=== PATIENT | male | born 1970 | race Caucasian/White ===

== ENCOUNTER 2017-09-23 08:29 | Emergency (ER) | payer MEDICAID ==
[2017-09-23] MEDS ORDERED: Sodium Chloride 0.9% 1,000 ML IV ONE (08:37)
--- NOTE | 2017-09-23 08:39 | EDM.PDOC ---
ED HPI GENERAL MEDICAL PROBLEM - General Chief Complaint: Back Pain or Injury Stated Complaint: LOWER BACK PAIN Time Seen by Provider: 09/23/17 08:34 - History of Present Illness INITIAL COMMENTS - FREE TEXT/NARRATIVE: HISTORY AND PHYSICAL: History of present illness: Patient's 47-year-old white male presents with concern of right flank pain. No fever chills nausea vomiting he denies history urolithiasis he states he had cloudy urine recently. He denies trauma or other concern Review of systems: As per history of present illness and below otherwise all systems reviewed and negative. Past medical history: As per history of present illness and as reviewed below otherwise noncontributory. Surgical history: As per history of present illness and as reviewed below otherwise noncontributory. Social history: No reported history of drug or alcohol abuse. Family history: As per history of present illness and as reviewed below otherwise noncontributory. Physical exam: HEENT: Atraumatic, normocephalic, pupils reactive, negative for conjunctival pallor or scleral icterus, mucous membranes moist, throat clear, neck supple, nontender, trachea midline. Lungs: Clear to auscultation, breath sounds equal bilaterally, chest nontender. Heart: S1S2, regular, negative for clicks, rubs, or JVD. Abdomen: Soft, nondistended, nontender. Negative for masses or hepatosplenomegaly. Mild right side costovertebral tenderness. Pelvis: Stable nontender. Genitourinary: Deferred. Rectal: Deferred. Extremities: Atraumatic, negative for cords or calf pain. Neurovascular unremarkable. Neuro: Awake, alert, oriented. Cranial nerves II through XII unremarkable. Cerebellum unremarkable. Motor and sensory unremarkable throughout. Exam nonfocal. Diagnostics: CBC CMP UA urine culture sensitivity CT abdomen and pelvis Therapeutics: Normal saline 1 L bolus Impression: #1 right flank pain Definitive disposition and diagnosis as appropriate pending reevaluation and review of above. - Related Data Allergies Allergy/AdvReac Type Severity Reaction Status Date / Time No Known Allergies Allergy Verified 09/23/17 09:26 Home Meds: Home Meds . [No Known Home Meds] 09/23/17 [History] ED ROS GENERAL - Review of Systems Review Of Systems: ROS reveals no pertinent complaints other than HPI. ED EXAM, GENERAL - Physical Exam Exam: See Below (See dictation) Course - Vital Signs Last Recorded V/S: Last Vital Signs Temp 36.4 C 09/23/17 08:45 Pulse 79 09/23/17 08:45 Resp 18 09/23/17 08:45 BP 147/99 H 09/23/17 08:45 Pulse Ox 94 L 09/23/17 08:45 - Orders/Labs/Meds Orders: Active Orders 24 hr Category Date Time Status Abdomen Pelvis wo Cont [CT] Stat Exams 09/23/17 08:37 Taken CULTURE URINE [RM] Stat Lab 09/23/17 09:42 Ordered UA W/MICROSCOPIC [URIN] Stat Lab 09/23/17 09:42 Ordered Labs: Laboratory Tests 09/23/17 09/23/17 09/23/17 Range/Units 08:55 08:55 09:42 WBC 6.34 (4.0-11.0) K/uL RBC 4.73 (4.50-5.90) M/uL Hgb 14.3 (13.0-17.0) g/dL Hct 40.7 (38.0-50.0) % MCV 86.0 (80.0-98.0) fL MCH 30.2 (27.0-32.0) pg MCHC 35.1 (31.0-37.0) g/dL RDW Std Deviation 43.3 (28.0-62.0) fl RDW Coeff of Marifer 14 (11.0-15.0) % Plt Count 160 (150-400) K/uL MPV 10.60 (7.40-12.00) fL Neut % (Auto) 59.8 (48.0-80.0) % Lymph % (Auto) 24.1 (16.0-40.0) % Jenkins % (Auto) 11.2 (0.0-15.0) % Eos % (Auto) 4.3 (0.0-7.0) % Baso % (Auto) 0.6 (0.0-1.5) % Neut # (Auto) 3.8 (1.4-5.7) K/uL Lymph # (Auto) 1.5 (0.6-2.4) K/uL Jenkins # (Auto) 0.7 (0.0-0.8) K/uL Eos # (Auto) 0.3 (0.0-0.7) K/uL Baso # (Auto) 0.0 (0.0-0.1) K/uL Nucleated RBC % 0.0 /100WBC Nucleated RBCs # 0 K/uL Sodium 138 (136-148) mmol/L Potassium 4.4 (3.5-5.1) mmol/L Chloride 104 (98-107) mmol/L Carbon Dioxide 26.0 (21.0-32.0) mmol/L BUN 11 (7.0-18.0) mg/dL Creatinine 1.1 (0.8-1.3) mg/dL Est Cr Clr Drug Dosing 84.80 mL/min Estimated GFR (MDRD) > 60.0 ml/min Glucose 104 (74-106) mg/dL Calcium 8.7 (8.5-10.1) mg/dL Total Bilirubin 0.3 (0.2-1.0) mg/dL AST 52 H (15-37) IU/L ALT 97 H (14-63) IU/L Alkaline Phosphatase 61 (46-116) U/L Total Protein 6.7 (6.4-8.2) g/dL Albumin 3.6 (3.4-5.0) g/dL Globulin 3.1 (2.0-3.5) g/dL Albumin/Globulin Ratio 1.2 L (1.3-2.8) Urine Color YELLOW Urine Appearance CLEAR Urine pH 6.0 (5.0-8.0) Ur Specific [place] 1.010 (1.001-1.035) Urine Protein NEGATIVE (NEGATIVE) mg/dL Urine Glucose (UA) NEGATIVE (NEGATIVE) mg/dL Urine Ketones NEGATIVE (NEGATIVE) mg/dL Urine Occult Blood TRACE-INTACT (NEGATIVE) Urine Nitrite NEGATIVE (NEGATIVE) Urine Bilirubin NEGATIVE (NEGATIVE) Urine Urobilinogen 0.2 (<2.0) EU/dL Ur Leukocyte Esterase NEGATIVE (NEGATIVE) Urine RBC 0-2 (0-2/HPF) Urine WBC 0-1 (0-5/HPF) Ur Epithelial Cells RARE (NONE-FEW) Urine Bacteria RARE (NEGATIVE) Meds: Medications Discontinued Medications Generic Name Dose Route Start Last Admin Trade Name Freq PRN Reason Stop Dose Admin Sodium Chloride 1,000 mls @ 999 mls/hr 09/23/17 08:37 09/23/17 09:21 Normal Saline IV 09/23/17 09:37 999 mls/hr STAT ONE Administration Departure - Departure Time of Disposition: 11:12 Disposition: Home, Self-Care 01 Condition: Good Clinical Impression: Flank pain - Discharge Information Referrals: PCP,None [Primary Care Provider] - Forms: ED Department Discharge Additional Instructions: The following information is given to patients seen in the emergency department who are being discharged to home. This information is to outline your options for follow-up care. We provide all patients seen in our emergency department with a follow-up referral. The need for follow-up, as well as the timing and circumstances, are variable depending upon the specifics of your emergency department visit. If you don't have a primary care physician on staff, we will provide you with a referral. We always advise you to contact your personal physician following an emergency department visit to inform them of the circumstance of the visit and for follow-up with them and/or the need for any referrals to a consulting specialist. The emergency department will also refer you to a specialist when appropriate. This referral assures that you have the opportunity for followup care with a specialist. All of these measure are taken in an effort to provide you with optimal care, which includes your followup. Under all circumstances we always encourage you to contact your private physician who remains a resource for coordinating your care. When calling for followup care, please make the office aware that this follow-up is from your recent emergency room visit. If for any reason you are refused follow-up, please contact the [facility] emergency department at and asked to speak to the emergency department charge nurse. Motrin/Tylenol as directed push fluids follow-up primary medical doctor return as needed as discussed[] - My Orders Last 24 Hours: My Active Orders 09/23/17 08:37 Abdomen Pelvis wo Cont [CT] Stat 09/23/17 09:42 CULTURE URINE [RM] Stat UA W/MICROSCOPIC [URIN] Stat - Assessment/Plan Last 24 Hours: My Active Orders 09/23/17 08:37 Abdomen Pelvis wo Cont [CT] Stat 09/23/17 09:42 CULTURE URINE [RM] Stat UA W/MICROSCOPIC [URIN] Stat
[2017-09-23 09:28] LABS: CHLORIDE,CL 104 mmol/L (98-107); SODIUM,NA 138 mmol/L (136-148)
--- NOTE | 2017-09-25 18:35 | CT ---
EXAM DATE: 09/23/17 PATIENT'S AGE: 47 Patient: SURINDER JOVEL Facility: [place], [place] Site . Site : [id number] Study: CT Abdomen/Pelvis [id number]/7/2018 9:25:37 AM Ordering Physician: Doctor Chan Final Report: INDICATION: Right flank pain. TECHNIQUE: Noncontrast 3 mm axial imaging has been performed through the abdomen and pelvis. Sagittal and coronal reconstructions have been obtained. FINDINGS: The lung bases are free of infiltrate. Some mild atelectasis in the right lung base is noted. The liver contours are nodular most compatible with intrinsic liver disease/cirrhosis. The should be correlated with the patient`s history. Spleen size is borderline prominent. The pancreas and bilateral adrenal glands are within normal limits. There are no radiopaque kidney stones. No edema is seen of either right or left kidney. No ureteric stones are identified. Bladder is partially fluid-filled and unremarkable. Retroperitoneum and iliac akshat chain demonstrate no lymphadenopathy. No significant free fluid is seen. Visualized appendix is within normal limits. The gallbladder is decompressed. IMPRESSION: 1. No radiopaque kidney stones or hydronephrosis is identified. No ureteric stones noted. 2. Abnormal nodular contour to the liver most compatible with intrinsic liver disease/cirrhosis. This should be correlated with the patient`s history. 3. No evidence for bowel obstruction. No significant free fluid is seen. No evidence for diverticulitis or appendicitis. Dictated by Willem Preciado MD @ 09/23/2017 9:49:47 AM Please note that all CT scans at this facility use dose modulation, iterative reconstruction, and/or weight-based dosing when appropriate to reduce radiation dose to as low as reasonably achievable. Dictated by: Willem Preciado MD @ 09/23/2017 09:50:45 (Electronic Signature) Report Signed by Proxy. FLOWER
== END 2017-09-23 11:20 | disposition home or self-care (01) ==
LOC: MW.ED 08:29
DX: R10.9 Unspecified abdominal pain (principal)
CPT/HCPCS: 36415; 74176; 80053; 81001; 85025; 87086; 96360; 99284; J7040; 99283